=== PATIENT | male | born 1960 | race Caucasian/White ===

== ENCOUNTER 2018-02-12 06:52 | Outpatient (CLI) | payer BC | END 2018-02-12 06:53 | disposition critical access hospital (66) | LOC: EMS 06:52 | PROVIDERS: ATTEND Surgery | DX: R10.9 Unspecified abdominal pain (principal); R11.0 Nausea | CPT/HCPCS: A0425; A0427 ==

== ENCOUNTER 2018-02-12 07:31 | Emergency (ER) | payer BC ==
[2018-02-12] MEDS ORDERED: SODIUM CHLORIDE 0.9% 1,000 ML IV ONE (07:49)
--- NOTE | 2018-02-12 07:51 | ED Physician Documentation ---
History of Present Illness - Stated complaint Stated Complaint: L FLANK PX - Additonal information Additional information: hx from pt 57 male woke this AM with severe L flank pain rad to LLQ could not get comfortable nausea no vomit no diarrhea ? hematuria no fever no hx same given fentanyl 150mcg and zofran by EMS feels better now Review of Systems Constitutional: reports: Sweats (2/2 pain). denies: Fever, Chills Cardiac: denies: Chest pain / pressure Respiratory: denies: Dyspnea GI: reports: Abdominal Pain (LLQ) : reports: Hematuria (maybe) Musculoskeletal: reports: Back pain Endocrine: denies: Easy bruising / bleeding Immunocompromised: denies: Immunocompromised PD PAST MEDICAL HISTORY - Present Medications Home Medications: Ambulatory Orders Medication Instructions Recorded Confirmed Ibuprofen [Motrin] 400 mg PO Q6H PRN #20 tablet 02/12/18 Ondansetron Odt [Zofran] 4 mg TL Q6H PRN #10 tablet 02/12/18 Oxycodone HCl/Acetaminophen 1 each PO Q6H PRN #10 tablet 02/12/18 [Percocet 5-325 mg Tablet] Tamsulosin HCl [Flomax] 0.4 mg PO DAILY #7 cap 02/12/18 - Allergies Allergies/Adverse Reactions: Allergies Allergy/AdvReac Type Severity Reaction Status Date / Time Penicillins Allergy Unknown Verified 02/12/18 07:52 PD ED PE NORMAL - Vitals Vital signs reviewed: Yes - General General: Alert and oriented X 3 - Cardiac Cardiac: RRR - Respiratory Respiratory: No respiratory distress, Clear bilaterally - Abdomen Abdomen: Soft, Non tender, Other (no pulsatile mass ) - Derm Derm: Normal color - Neuro Neuro: Alert and oriented X 3 Results - Vitals Vitals: Vital Signs - 24 hr 02/12/18 02/12/18 02/12/18 07:36 10:25 11:26 Temperature 36.4 C L 36.8 C Heart Rate 67 89 88 Respiratory 18 16 16 Rate Blood Pressure 138/94 H 105/66 111/68 O2 Saturation 96 97 98 Oxygen O2 Source Room air - Labs Labs: Laboratory Tests 02/12/18 02/12/18 02/12/18 08:07 08:07 08:45 WBC 9.7 RBC 5.17 Hgb 14.7 Hct 43.0 MCV 83.1 MCH 28.5 MCHC 34.3 RDW 13.4 Plt Count 251 MPV 7.2 L Neut # (Auto) 8.2 H Lymph # (Auto) 1.0 L [place] # (Auto) 0.5 Eos # (Auto) 0.1 Baso # (Auto) 0.0 Absolute Nucleated RBC 0.00 Nucleated RBC % 0.0 Sodium 138 Potassium 3.4 L Chloride 105 Carbon Dioxide 26 Anion Gap 7.0 BUN 23 H Creatinine 0.9 Estimated GFR (MDRD) 88 L Glucose 132 H Calcium 8.7 Urine Color BROWN Urine Clarity CLOUDY Urine pH 8.0 H Ur Specific [place] 1.025 Urine Protein NEGATIVE Urine Glucose (UA) NEGATIVE Urine Ketones NEGATIVE Urine Occult Blood LARGE H Urine Nitrite NEGATIVE Urine Bilirubin NEGATIVE Urine Urobilinogen 0.2 (NORMAL) Ur Leukocyte Esterase NEGATIVE Urine RBC TNTC H Urine WBC 0-3 Ur Squamous Epith Cells NONE SEEN Urine Bacteria Rare Ur Microscopic Review INDICATED Urine Culture Comments NOT INDICATED - Rads (name of study) CT AP stone study Radiology: See rad report (enlarged prostate, R renal cyst, L kidney with 2 mm stone upper pole, L proximal ureter with 2 mm stone and mild hydro, slight inc attenuation of pelvis fluid L kidney likely hematuria but rads rec repeat iumaging after stone clears to rule out lesion) Departure - Departure Disposition: 01 Home, Self Care Clinical Impression: Renal colic on left side Condition: Good Instructions: ED Stone Renal W Colic Prescriptions: Ibuprofen [Motrin] 400 mg PO Q6H PRN #20 tablet PRN Reason: Pain Ondansetron Odt [Zofran] 4 mg TL Q6H PRN #10 tablet PRN Reason: Nausea / Vomiting Oxycodone HCl/Acetaminophen [Percocet 5-325 mg Tablet] 1 each PO Q6H PRN #10 tablet PRN Reason: Severe Pain Tamsulosin HCl [Flomax] 0.4 mg PO DAILY #7 cap Comments: The CT scan shows you are passing a 2 mm stone. This stone is small enough to pass on its own I have prescribed medication for the inflammation, for severe pain, for nausea, and to relax the ureter. Drink plenty of fluids to help flush out the stone Filter your urine and save the stone to take to your follow up appointment - the stone can be sent to the lab to see if it is made of oxalate or calcium and then you may be able to adjust your diet to prevent further stones The radiologist also noted that you have a right kidney cyst, another 2 mm stone still in the left kidney and that the fluid in your kidney looks a little more dense than normal urine - this is likely due to blood in the urine but the radiologist recommends another CT after the stone passes to confirm this and rule out other problems - you PMD or urologist can order that for you Forms: Activity restrictions Discharge Date/Time: 02/12/18 11:31
[2018-02-12 08:14] LABS: BASOPHILS % (AUTO) 0.3 %; EOSINOPHILS # (AUTO) 0.1 10^3/uL (0.0-0.7); EOSINOPHILS % (AUTO) 0.6 %; HGB - HEMOGLOBIN 14.7 g/dL (14.0-18.0); MEAN CORPUSCULAR HEMOGLOBIN 28.5 pg (27.0-31.0); MEAN CORPUSCULAR HGB CONC 34.3 g/dL (32.0-36.0); MEAN CORPUSCULAR VOLUME 83.1 fL (80.0-94.0); MEAN PLATELET VOLUME 7.2 fL (7.4-11.4); MONOCYTES # (AUTO) 0.5 10^3/uL (0.0-1.0); MONOCYTES % (AUTO) 5.2 %; NEUTROPHILS # (AUTO) 8.2 10^3/uL (1.5-6.6); NEUTROPHILS % (AUTO) 83.9 %; PLT - PLATELET COUNT 251 10^3/uL (130-450); RED BLOOD COUNT 5.17 10^6/uL (4.70-6.10); RED CELL DISTRIBUTION WIDTH 13.4 % (12.0-15.0); WHITE BLOOD COUNT 9.7 x10^3/uL (4.8-10.8)
[2018-02-12] MEDS: KETOROLAC 60 MG/2 ML VIAL IVP STA ×2 (08:17)
[2018-02-12 08:22] LABS: CALCIUM 8.7 mg/dL (8.5-10.3); CREATININE 0.9 mg/dL (0.6-1.2)
--- NOTE | 2018-02-12 08:49 | CT Report ---
Reason: L flank pain c/w renal colic Procedure Date: 02/12/2018 Accession Number: [id number] / [id number] Procedure: CT - Abdomen/Pelvis W/O CPT Code: FULL RESULT: EXAM: CT ABDOMEN AND PELVIS (CT KUB) EXAM DATE: 02/12/2018 08:28 AM. CLINICAL HISTORY: L flank pain c/w renal colic. COMPARISONS: None. TECHNIQUE: Routine axial helical CT imaging was performed through the abdomen and pelvis without IV contrast. Reconstructions: Coronal and sagittal. In accordance with CT protocol optimization, one or more of the following dose reduction techniques were utilized for this exam: automated exposure control, adjustment of mA and/or KV based on patient size, or use of iterative reconstructive technique. FINDINGS: Lung Bases: Mild atelectasis. Right Kidney/Ureter: 6.5 cm posterior right renal cyst with water attenuation. No hydronephrosis. Left Kidney/Ureter: 2 mm left upper renal stone. Probable 2 mm stone within proximal left ureter on series 5 coronal image 25. Mild increased density within distended left renal pelvis with 22 HU attenuation, slightly higher than water density. Left renal pelvis measures 1.7 cm AP. Very mild left hydronephrosis. Other Solid Organs: Noncontrast images of the solid organs are grossly unremarkable. Gallbladder/Bile Ducts: Unremarkable. Peritoneal Cavity: No free fluid, free air or cristian adenopathy. Bowel is grossly unremarkable. Normal appendix. Pelvic Organs: No bladder stones or wall thickening. Prostate is enlarged with 82 cc volume. Vasculature: Multiple pelvic phleboliths. Mild atherosclerotic arterial calcifications. Other: Lower lumbar spine degenerative changes. IMPRESSION: 1. Very mild left hydronephrosis due to a 2 mm proximal ureteral stone. A 2 mm left upper renal stone is also noted. Left renal pelvis is distended with increased attenuation, presumably from hematuria. Consider follow-up CT IVP or urology consult after current obstructing ureteral stone resolves, to exclude left renal pelvic urothelial lesion. 2. Enlarged prostate. RADIA
[2018-02-12] MEDS ORDERED: oxyCODONE 5 MG TABLET PO STA (09:57)
[2018-02-12] MEDS ORDERED: MORPHINE 2 MG/ML CARPUJECT IVP STA (09:57)
[2018-02-12 09:59] LABS: BILIRUBIN,URINE NEGATIVE (NEGATIVE); GLUCOSE, URINE (UA) NEGATIVE (NEGATIVE); KETONES,URINE (UA) NEGATIVE (NEGATIVE); LEUKOCYTE ESTERASE, URINE NEGATIVE (NEGATIVE); NITRITE,URINE NEGATIVE (NEGATIVE); OCCULT BLOOD,URINE LARGE (NEGATIVE); PROTEIN,URINE NEGATIVE (NEGATIVE); UROBILINOGEN,URINE 0.2 (NORMAL) E.U./dL (NORMAL)
[2018-02-12 10:08] LABS: CLARITY,URINE CLOUDY (CLEAR)
[2018-02-12] MEDS ORDERED: ONDANSETRON 4 MG/2 ML VIAL ONE (10:25)
[2018-02-12 10:37] LABS: BACTERIA,URINE Rare /HPF (None Seen); RBC,URINE TNTC /HPF (0-5); SQUAMOUS EPITHELIAL CELL,UR NONE SEEN (<= Few)
[2018-02-12 11:27] VITALS: BP 111/68
== END 2018-02-12 11:31 | disposition home or self-care (01) ==
LOC: ED 07:31
DX: N13.2 Hydronephrosis with renal and ureteral calculous obstruction (principal); N28.1 Cyst of kidney, acquired
CPT/HCPCS: 36415; 74176; 80048; 81001; 85025; 96361; 96374; 96375; 99283; 99284; A9270; 81003; 87086